=== PATIENT | male | born 1995 | race Caucasian/White ===

== ENCOUNTER 2021-11-06 21:38 | Inpatient (IN) | payer BC, SELFPAY ==
[2021-11-06 21:53] VITALS: BMI 20.1
[2021-11-06 21:55] VITALS: BP 121/74; PULSE 66; RESP 16; TEMP 36.6; O2SAT 100
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
[2021-11-06] MEDS: trazodone 50 mg Tablet PO (22:19)
--- NOTE | 2021-11-07 00:01 | PC.NURSE ---
PRN ADMIN: Patient stated he had trouble getting to sleep, PRN trazodone given as ordered with noted effectiveness.
[2021-11-07 06:00] VITALS: BP 104/69; PULSE 70; RESP 14; TEMP 36.8; O2SAT 98
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
[2021-11-07] MEDS: hyDROXYzine 25 mg Capsule 50 MG PO (07:47)
[2021-11-07] MEDS: BuSPIRONE 10 mg Tablet PO ×3 (08:05→20:17)
--- NOTE | 2021-11-07 08:59 | PC.NURSE ---
PATIENT ADMITTED LAST NIGHT TO NPU. DURING AM ASSESSMENT REPORTS HE KNOWS HE NEEDS HELP AND HAS HAD SI THE PAST WEEK WITH INTRUSIVE THOUGHTS TELLING HIM TO KILL HIMSELF. REPORTS HE HAS BEEN TAKING VRAYLAR FOR 2 MONTHS NOW AND IT DOES NOT SEEM TO BE HELPING. VRAYLAR IS NOT AVAILABLE IN PHARMACY SO HE DID NOT RECEIVE HIS DOSE THIS AM. HE IS ALSO TAKING 10 MG OF BUSPAR AND THINKS HE NEEDS IT INCREASED DUE TO INCREASED ANXIETY. REPORTS HE HAS BEEN COMPLIANT WITH MEDICATIONS. HE STATES HIS PCP TOLD HIM THEY COULD NOT HELP HIM ANYMORE AND NEEDED TO REFER HIM ON TO A MENTAL HEALTH PROVIDER BUT THE 2 PLACES HIS PCP REFEREED HIM TO WOULD NOT TAKE HIM AND DENIED HIM. CURRENTLY DENIES SI/HI AND AVH AT THIS TIME. DOES REPORT THE PAST WEEK HE HAS BEEN SEEING THINGS THAT ARE NOT THERE. DENIES PAIN. DOES REPORT MILD ANXIETY DUE TO BEING IN A NEW PLACE. STATES HIS PCP TOLD HIM HE WAS BIPOLAR BUT NOW HE FEELS LIKE HE ISN'T SURE IF THE PCP ACTUALLY HAD THE RIGHT DIAGNOSIS. PATIENT IS RECEPTIVE TO EDUCATION AND GETTING HELP WITH HIS MENTAL HEALTH. DENIES ALCOHOL AND DRUG USE, REPORTS HE DOES SMOKE MARIJUANA. STATES WHAT HE HOPES TO GET FROM HERE ARE RESOURCES SO HE CAN GET IN TOUCH WITH A DR. OR THERAPISTS THAT CAN HELP HIM WITH MEDICATIONS AND GETTING A CORRECT DIAGNOSIS SO HE KNOWS WHAT HE IS DEALING WITH.
--- NOTE | 2021-11-07 09:44 | PC.NURSE ---
C/O ANXIETY THIS AM. STATES HE IS IN A NEW PLACE AND IT IS MAKING HIM OVERLY ANXIOUS. VISTARIL 50 MG GIVEN ORDERED FOR ANXIETY.
[2021-11-07 14:00] VITALS: BP 115/70; PULSE 58; RESP 17; TEMP 36.8; O2SAT 99
[2021-11-07] MEDS: CARIPRAZINE 3 MG 3 EACH PO (18:03)
[2021-11-07] MEDS: nicotine 2 mg Gum BUCCAL (20:17)
[2021-11-07 20:43] VITALS: BP 108/64; PULSE 59; RESP 16; O2SAT 98
[2021-11-07] MEDS: trazodone 50 mg Tablet PO (22:02)
--- NOTE | 2021-11-08 00:55 | PC.NURSE ---
PRN ADMIN Patient requested something to help him sleep. PRN trazodone given as ordered with noted effectiveness.
[2021-11-08 06:00] VITALS: BP 103/60; PULSE 65; RESP 16; O2SAT 98
--- NOTE | 2021-11-08 07:15 | W.PM.NPUPNS ---
Subjective NPU Subjective: He was yesterday reporting that he feels that the increase in the Vraylar has been helpful. He reports that his anxiety however has been less well-managed. He discussed maybe having some hot or cold flashes but he?s not sure what that?s related to. We discussed the risks benefits and alternatives of increasing his BuSpar to assist with his anxiety and he understood and agreed to proceed as is documented in this note. We discussed him working with the social work team for outpatient treatment management and setting him up with mental health providers which has not been part of his treatment in the past. Mental Status Exam MSE Comments: This is a slender, white male, with male pattern balding, in hospital scrubs, with adequate grooming and eye contact. No abnormal movements. Cooperative with exam in no acute distress. Speech was slightly decreased rate and volume. Mood described as anxious; affect congruent. Thought process, organized. Thought content: patient denied suicidal or homicidal ideation; he endorses paranoia but there were no delusions noted; patient denied auditory or visual hallucinations. Attention, concentration, and memory appeared intact but none were formally tested. Alert and oriented times three. Insight and judgment are appear fair. Impulse control is limited.? Vitals/I&O/Wt Last Vital Signs Temp 98.3 F 11/07/21 14:00 Pulse 65 11/08/21 06:00 Resp 16 11/08/21 06:00 BP 103/60 11/08/21 06:00 Pulse Ox 98 11/08/21 06:00 Weight last 48 hrs Weight 61.87 kg A&P Assessment and plan (1) PTSD (post-traumatic stress disorder): Status: Acute (2) Bipolar I disorder with rica: Status: Acute Plan This is a 26 -year-old, white male, with some history of trauma and conflict with his parents, who presents as it appears his antipsychotic/mood stabilizer has begun to be less effective, reporting an openness to making some changes. 1. Continue current medication, except increase Vraylar to 3 mg po q daily. 2. Encourage individual, group, and milieu therapy. 3. Continue q-15 minute checks for safety. 4. Recommend sober living treatment at the highest level of care to which the patient is willing to commit. Involuntary Hold Information 96 Hour Hold: 96 Hour Involuntary Admission: No Attestations NPU Medical Necessity Statement*: Inpatient hospitalization is medically necessary and the clinically appropriate intervention, at this time. We will monitor medications and make changes as indicated. Likely length of stay is 1-3 days. Coding Level of Care Code Acute Creative Lead for [facility] Fwd Diagnoses PTSD (post-traumatic stress disorder) F43.10 Bipolar I disorder with rica F31.10
[2021-11-08] MEDS: BuSPIRONE 10 mg Tablet PO (08:25)
[2021-11-08] MEDS: CARIPRAZINE 3 MG 3 EACH PO (08:25)
[2021-11-08] MEDS: hyDROXYzine 25 mg Capsule 50 MG PO (10:26)
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
[2021-11-08 13:54] VITALS: BP 122/84; PULSE 98; RESP 16; TEMP 36.7; O2SAT 98
[2021-11-08] MEDS: BuSPIRONE 10 mg Tablet 15 MG PO ×2 (15:07→20:58)
[2021-11-08 20:34] VITALS: BP 117/77; PULSE 60; RESP 18; TEMP 36.4; O2SAT 99
[2021-11-08] MEDS: trazodone 50 mg Tablet PO (20:58)
--- NOTE | 2021-11-09 04:25 | PC.NURSE ---
AT START OF SHIFT, PT UP IN DAYROOM INTERACTING WITH OTHERS. NO ISSUES NOTED, NO C/O VOICED. DENIED SI/HI AND AVH. PT TO BED AND RESTED UNTIL 0400. PT UP AT THIS TIME TO SHOWER. STILL NO C/O VOICED. CALM, COOPERATIVE, OX4.
[2021-11-09 06:00] VITALS: BP 114/77; PULSE 76; RESP 18; TEMP 36.4; O2SAT 97
[2021-11-09] MEDS: BuSPIRONE 10 mg Tablet 15 MG PO (07:47)
[2021-11-09] MEDS: CARIPRAZINE 3 MG 3 EACH PO (07:48)
[2021-11-09] MEDS: nicotine 21 mg Patch 1 PATCH TRANSDERMA (07:51)
[2021-11-09] MEDS: bisacodyl 5 mg Tablet PO (09:56)
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
[2021-11-09 11:57] VITALS: BP 114/77; PULSE 76; RESP 18; TEMP 36.4; O2SAT 97
== END 2021-11-09 12:32 | disposition home or self-care (01) | DRG 885 ==
PROVIDERS: Admitting Provider Psychiatry & Neurology Psychiatry; Visit Provider Psychiatry & Neurology Psychiatry
DX: F31.10 Bipolar disorder, current episode manic without psychotic features, unspecified (principal); R45.851 Suicidal ideations; F43.10 Post-traumatic stress disorder, unspecified; Z91.52 Personal history of nonsuicidal self-harm; Z62.819 Personal history of unspecified abuse in childhood; F17.290 Nicotine dependence, other tobacco product, uncomplicated
CPT/HCPCS: 97150; 97165